=== PATIENT | male | born 1995 | race Two or more races ===

== ENCOUNTER 2017-01-09 13:31 | Emergency (ER) | payer OTHER ==
[~2017-01-09] VITALS: Ht 172.7 cm; Wt 63.5 kg
--- NOTE | 2017-01-09 13:54 | Emergency Room Report ---
History of Present Illness General Chief Complaint: Pain Source: Patient Present Illness HPI 21-year-old male presents to the emergency department complaining of dry persistent cough times one week. Patient reports pain in the posterior rib cage 5/10 in severity localized on the left side exacerbated upon coughing or overhead reach. Patient denies fevers, chills, history of asthma or COPD. he denies smoking. he denies neck pain or stiffness. denies SOB. Denies CP, Palpitations, LOC, AMS, dizziness, Changes in Vision, Sensation, paresthesias, or a sudden severe headache. Allergies: Coded Allergies: No Known Allergies (Unverified , 01/09/17) Patient History Past Medical History: see triage record Past Surgical History: none Pertinent Family History: none Immunizations: UTD Reviewed Nursing Documentation: PMH: Agreed, PSxH: Agreed Nursing Documentation-PMH Past Medical History: No Stated History Physical Exam Vital Signs Date Time Temp Pulse Resp B/P Pulse Ox O2 Delivery O2 Flow Rate FiO2 01/09/17 13:37 97.5 73 17 132/82 98 Room Air Sp02 EP Interpretation: reviewed, normal General Appearance: no apparent distress, alert, GCS 15, non-toxic Head: normocephalic, atraumatic Eyes: bilateral eye PERRL, bilateral eye normal inspection ENT: hearing grossly normal, normal pharynx, normal voice, TMs + canals normal , uvula midline, moist mucus membranes Neck: full range of motion, supple/symm/no masses Respiratory: chest non-tender, lungs clear, normal breath sounds, no rhonchi, no wheezing, speaking full sentences Cardiovascular #1: regular rate, rhythm, no edema Genitourinary: normal inspection, no CVA tenderness Musculoskeletal: back normal, gait/station normal, normal range of motion, other - mild ttp to the left posterior lower ribcage. Neurologic: alert, oriented x3, responsive, motor strength/tone normal, sensory intact, speech normal Psychiatric: judgement/insight normal, memory normal, mood/affect normal Skin: normal color, no rash, warm/dry, well hydrated Lymphatic: no adenopathy Medical Decision Making PA Attestation Dr. Smith is my supervising Physician whom patient management has been discussed with. Diagnostic Impression: Primary Impression: Bronchitis ER Course 21-year-old male presents to the emergency department complaining of dry persistent cough times one week. Patient reports pain in the posterior rib cage 5/10 in severity localized on the left side exacerbated upon coughing or overhead reach. Patient denies fevers, chills, history of asthma or COPD. he denies smoking. he denies neck pain or stiffness. denies SOB. Denies CP, Palpitations, LOC, AMS, dizziness, Changes in Vision, Sensation, paresthesias, or a sudden severe headache. Ddx considered but are not limited to URI, bronchitis, pneumonia, PE, strep pharyngitis, meningitis. Vital signs: Pt.is afebrile VS are WNL H&PE are most consistent with bronchitis ORDERS: none required at this time, the diagnosis is clinical ED INTERVENTIONS: None required at this time. DISCHARGE: At this time pt. is stable for d/c to home. Will provide printed patient care instructions, and any necessary prescriptions. Care plan and follow up instructions have been discussed with the patient prior to discharge. Last Vital Signs Date Time Temp Pulse Resp B/P Pulse Ox O2 Delivery O2 Flow Rate FiO2 01/09/17 13:37 97.5 73 17 132/82 98 Room Air Disposition: HOME, SELF-CARE Condition: Stable Scripts Ibuprofen* (MOTRIN*) 600 Mg Tablet 600 MG ORAL THREE TIMES A DAY, #30 TAB 0 Refills Prov: Lakisha Ma 01/09/17 Codeine/Promethazine Hcl* (PROMETHAZINE-CODEINE SYRUP*) 118 Ml Syrup 5 ML ORAL Q6H Y for For Cough, #118 ML 0 Refills Prov: Lakisha Ma 01/09/17 Patient Instructions: Acute Bronchitis, [id number] Additional Instructions: Take medications as directed. Follow up with a Primary Care Provider in 3-5 days, even if your symptoms have resolved. --Please review list of primary care clinics, if you do not already have a primary care provider Return sooner to ED if new symptoms occur, or current symptoms become worse. Do not drink alcohol, drive, or operate heavy machinery while taking cough syrup as this may cause drowsiness. - Please note that this Emergency Department Report was dictated using [employer] technology software, occasionally this can lead to erroneous entry secondary to interpretation by the dictation equipment. Lakisha Ma Jan 09, 2017 13:54
[2017-01-09] MEDS ORDERED: PROMETHAZINE-C118 M1 ORAL (13:55)
[2017-01-09] MEDS ORDERED: IBUPROFEN600 MG ORAL (13:55)
[2017-01-09 14:00] VITALS: BP 130/80
== END 2017-01-09 14:00 | disposition home or self-care (01) ==
LOC: EMR 13:50
DX: J20.9 Acute bronchitis, unspecified (principal)
CPT/HCPCS: 99283